=== PATIENT | female | born 1980 | race African-American/Black ===

== ENCOUNTER 2022-12-09 10:30 | Emergency (ER) | payer MEDICAID, MEDICARE, OTHER ==
[~2022-12-09] VITALS: Ht 167.6 cm; Wt 85.0 kg
[2022-12-09 12:45] VITALS: BP 134/94
== END 2022-12-09 12:47 | disposition home or self-care (01) ==
LOC: ER 10:30
DX: H92.01 Otalgia, right ear (principal)
CPT/HCPCS: 99281